=== PATIENT | female | born 1940 | race Caucasian/White ===

== ENCOUNTER → 2017-07-20 | Outpatient (CLI) | payer OTHER ==
[~2017-07-20] MED LIST: BACTRIM DS 8001 TA1 PO; NORVASC10 MG PO
== END | disposition home or self-care (01) ==
LOC: MRI 13:37
DX: Z01.818 Encounter for other preprocedural examination (principal); M25.511 Pain in right shoulder; M75.01 Adhesive capsulitis of right shoulder; M75.21 Bicipital tendinitis, right shoulder; M75.41 Impingement syndrome of right shoulder

== ENCOUNTER 2018-06-23 23:22 | Emergency (ER) | payer OTHER ==
[2018-06-23 23:40] LABS: BILIRUBIN NEGATIVE (NEGATIVE); BLOOD 1+ (NEGATIVE); CLARITY SL CLOUDY (CLEAR); COLOR YELLOW (YELLOW); GLUCOSE NEGATIVE (NEGATIVE); KETONE NEGATIVE (NEGATIVE); LEUKO ESTERASE 2+ (NEGATIVE); NITRITE NEGATIVE (NEGATIVE); PH 5.5 (5.0-9.0); SPECIFIC GRAVITY 1.025 (1.005-1.030); UROBILINOGEN 0.2 E.U./dl (0.2-1.0)
[2018-06-23 23:53] LABS: EPITHELIAL CELLS 20-25
[2018-06-23 23:54] LABS: RBC 21-30 rbc/hpf (0-2); WBC 31-40 wbc/hpf (0-5)
[2018-06-24] MEDS ORDERED: SEPTDS PO (00:16)
[2018-06-24] MEDS ORDERED: PYRIDIUM200 M1 PO (00:16)
== END 2018-06-24 00:27 | disposition home or self-care (01) ==
LOC: ED 23:22
PROVIDERS: Physician Assistant
DX: N39.0 Urinary tract infection, site not specified (principal); Z79.2 Long term (current) use of antibiotics; Z79.899 Other long term (current) drug therapy; Z90.710 Acquired absence of both cervix and uterus

== ENCOUNTER 2021-10-08 12:03 | Emergency (ER) | payer OTHER ==
[~2021-10-08] VITALS: Ht 154.9 cm; Wt 72.6 kg
[~2021-10-08 12:03] MED LIST changes: +PYRIDIUM200 M1 PO; +SEPTDS PO
[2021-10-08] MEDS ORDERED: HYDROCHLOROTH12.5 M3 PO (17:11)
[2021-10-08] MEDS ORDERED: ALPHAGAN-P 0.2%5 ML OPH (17:11)
[2021-10-08] MEDS ORDERED: RHOPRESSA2.5 ML OP (17:11)
[2021-10-08] MEDS ORDERED: POTASSIUM CHLO20 ME4 PO (17:11)
[2021-10-08] MEDS ORDERED: TIMOLOL MALEATE10 M1 OPH (17:12)
[2021-10-08] MEDS ORDERED: LATANOPROST2.5 ML OP (17:13)
== END 2021-10-08 19:25 | disposition home or self-care (01) ==
LOC: ED 12:03
DX: S00.33XA Contusion of nose, initial encounter (principal); M50.322 Other cervical disc degeneration at C5-C6 level; M50.323 Other cervical disc degeneration at C6-C7 level; M25.562 Pain in left knee; I10 Essential (primary) hypertension; Z79.899 Other long term (current) drug therapy; Z90.710 Acquired absence of both cervix and uterus; W01.0XXA Fall on same level from slipping, tripping and stumbling without subsequent striking against object, initial encounter; Y93.01 Activity, walking, marching and hiking; Y92.238 Other place in hospital as the place of occurrence of the external cause; Y99.8 Other external cause status

== ENCOUNTER 2021-12-10 00:53 | Emergency (ER) | payer OTHER ==
[~2021-12-10] VITALS: Ht 165.1 cm; Wt 81.6 kg
[~2021-12-10 00:53] MED LIST changes: +ALPHAGAN-P 0.2%5 ML OPH; +HYDROCHLOROTH12.5 M3 PO; +LATANOPROST2.5 ML OP; +POTASSIUM CHLO20 ME4 PO; +RHOPRESSA2.5 ML OP; +TIMOLOL MALEATE10 M1 OPH
== END 2021-12-10 01:54 | disposition home or self-care (01) ==
LOC: ED 00:53
DX: S00.03XA Contusion of scalp, initial encounter (principal); Z79.899 Other long term (current) drug therapy; Z90.710 Acquired absence of both cervix and uterus; W20.8XXA Other cause of strike by thrown, projected or falling object, initial encounter; Y93.89 Activity, other specified; Y92.89 Other specified places as the place of occurrence of the external cause; Y99.8 Other external cause status